=== PATIENT | male | born 1950 ===

== ENCOUNTER 2021-09-12 06:35 | Inpatient (IN) | payer MEDICARE ==
[~2021-09-12] VITALS: Ht 182.9 cm; Wt 100.0 kg
[2021-09-12 07:02] LABS: BASOPHILS ABSOLUTE AUTO 0.04 K/mm3 (0.00-0.23); BASOPHILS PERCENT AUTO 0 % (0-2); EOSINOPHILS ABSOLUTE AUTO 0.02 K/mm3 (0.00-0.68); EOSINOPHILS PERCENT AUTO 0 % (0-6); Hematocrit 40.6 % (37.0-53.0); Hemoglobin 13.3 g/dL (13.5-17.5); IMMATURE GRAN ABSOLUTE AUTO 0.09 K/mm3 (0.00-0.10); IMMATURE GRAN PERCENT AUTO 1 % (0-1); LYMPHOCYTES PERCENT AUTO 17 % (21-46); MONOCYTES ABSOLUTE AUTO 1.31 K/mm3 (0.16-1.47); MONOCYTES PERCENT AUTO 7 % (4-13); Mean Corpuscular HGB 25.9 pg (26.0-34.0); Mean Corpuscular HGB Conc 32.8 g/dL (31.5-36.5); Mean Corpuscular Volume 79 fL (80-100); Mean Platelet Volume 8.8 fL (9.1-12.4); NEUTROPHILS PERCENT AUTO 76 % (41-73); Platelet Count 418 K/mm3 (150-400); RDW Coefficient Variation 13.2 % (11.7-14.2); RDW Standard Deviation 37.9 fL (35.1-46.3); Red Blood Cell Count 5.14 M/mm3 (4.30-5.90); White Blood Cell Count 19.06 K/mm3 (4.00-11.30)
[2021-09-12 07:23] LABS: Alanine Aminotransfer (ALT/SGP 12 U/L (12-78); Albumin, Blood 4.1 g/dL (3.4-5.0); Alk Phos 67 U/L (50-136); Anion Gap 25 mmol/L (6-16); Aspartate Aminotrans (AST/SGOT 14 U/L (12-37); Bilirubin, Total 0.3 mg/dL (0.1-1.0); Blood Urea Nitrogen 43 mg/dL (8-24); Bun/Creatinine Ratio 15.7 (12.0-20.0); CO2, Blood 29 mmol/L (21-32); Calcium, Blood 9.7 mg/dL (8.5-10.1); Chloride, Blood 72 mmol/L (98-108); Creatinine, Blood 2.74 mg/dL (0.60-1.20); Ethanol (Alcohol), Blood, Med <3 mg/dL; Globulin, Blood 4.1 g/dL (2.2-4.0); Glomerular Filtration Rate 24 (60-); Glucose, Blood 121 mg/dL (70-99); Potassium, Blood 2.8 mmol/L (3.5-5.5); Sodium, Blood 126 mmol/L (136-145); Total Protein, Blood 8.2 g/dL (6.4-8.2)
[2021-09-12] MEDS ORDERED: POTA8 PO (08:27)
[2021-09-12] MEDS ORDERED: VALSARTAN80 MG PO (08:27)
[2021-09-12] MEDS ORDERED: LEVEMIR FL100 UNIT/2 SC (08:27)
[2021-09-12] MEDS ORDERED: ATOR40TA PO (08:28)
[2021-09-12] MEDS ORDERED: GABA100 PO (08:28)
[2021-09-12] MEDS ORDERED: METFORMIN HCL500 M2 PO (08:28)
[2021-09-12 12:17] LABS: Source, Urine Clean Catch
[2021-09-12 12:24] LABS: Blood, Urine Neg (Neg); Color, Urine Yellow (P-Yellow); Glucose Qualitative, Urine Neg (Neg); Ketones, Urine Neg (Neg); Leukocyte Esterase, Urine Neg (Neg); Nitrite, Urine Neg (Neg); Protein, Urine 1+ (Neg); Urobilinogen, Urine NORM (Normal)
[2021-09-12 12:34] LABS: Appearance, Urine Hazy (Clear); Bacteria Not Seen /hpf; Bilirubin, Urine 1+ (Neg); Red Blood Cells, Urine Not Seen /hpf (0-2); Squamous Epithelial Cells Not Seen /hpf (Few); White Blood Cells, Urine Not Seen /hpf (0-5)
--- NOTE | 2021-09-12 18:39 | NUR ---
SHIFT SUMMARY: PT A/O X4, IND IN ROOM. PLEASANT AND COOPERATIVE WITH CARES. PT CIWA THIS EVENING WAS 3 DUE TO HEAD ACHE A AND SLIGHT AGITATION. NO VISIBLE OR FELT TREMORS IN HANDS AT THIS TIME. TYLENOL GIVEN FOR HIS HEAD ACHE AND WAS EFFECTIVE IN TREATING PAIN. PT HAS HAD NO EPISODES OF NAUSEA OR VOMITING THROUGHOUT SHIFT. PT URINE HAS GONE FROM CLOUDY TO LIGHT CLEAR YELLOW. IV FLUIDS CONTINUE AT 150ML/HR. NO OTHER CONCERNS AT THIS TIME.
--- NOTE | 2021-09-13 01:23 | NUR ---
PHYSICIAN COMMUNICATION CONTACTED DR JAMES TO NOTIFY HIM THAT THE PATIENT REPORTED HAVING INDEGESTION. DR JAMES ORERED TUMS 500 MG EVERY 4 HOURS NEEDED.
[2021-09-13 05:12] LABS: Hematocrit 35.6 % (37.0-53.0); Hemoglobin 11.8 g/dL (13.5-17.5); Mean Corpuscular HGB Conc 33.1 g/dL (31.5-36.5); Mean Corpuscular Volume 78 fL (80-100); Mean Platelet Volume 9.1 fL (9.1-12.4); Platelet Count 363 K/mm3 (150-400); RDW Coefficient Variation 13.4 % (11.7-14.2); RDW Standard Deviation 38.6 fL (35.1-46.3); Red Blood Cell Count 4.54 M/mm3 (4.30-5.90); White Blood Cell Count 10.96 K/mm3 (4.00-11.30)
[2021-09-13 05:56] LABS: Bun/Creatinine Ratio 22.2 (12.0-20.0); Calcium, Blood 9.1 mg/dL (8.5-10.1); Creatinine, Blood 1.53 mg/dL (0.60-1.20); Potassium, Blood 3.6 mmol/L (3.5-5.5)
--- NOTE | 2021-09-13 06:31 | NUR ---
SHIFT SUMMARY PATIENT ALERT AND ORIENTED. MEDICATED PER EMAR FOR NAUSEA. NO COMPLAINTS OF PAIN OR SHORTNESS OF BREATH. NO ACUTE ISSUES NOTED OVERNIGHT. CALL LIGHT WITHIN REACH. REPORT GIVEN TO ONCOMING RN.
[2021-09-13] MEDS ORDERED: METO5A PO (15:16)
[2021-09-13] MEDS ORDERED: MULVITA PO (15:17)
[2021-09-13] MEDS ORDERED: B-1100 M1 PO (15:18)
[2021-09-13] MEDS ORDERED: GABA300 PO (15:27)
--- NOTE | 2021-09-13 15:55 | NUR ---
DISCHARGE SUMMARY PT DISCHARGED TO HOME. PT LEFT ROOM AT 1353 VIA WHEELCHAIR WITH REGIONAL SAFETY MANAGER ESCORT. ALL DISCHARGE INFORMATION DISCUSSED. PT AGREES TO FOLLOW UP WITH PCP ON 09/17/21 SCHEDULED. PT EDUCATED ON ALL MEDICATIONS AND AGREES TO TAKE PRESCRIBED. IV DC'D AND BELONGINGS RETURNED.
== END 2021-09-13 16:34 | disposition home health service (06) | DRG 683 ==
LOC: ER 06:35 → MEDS 08:36
PROVIDERS: Emergency Medicine; Nurse Practitioner Acute Care; ADMIT Internal Medicine
PROC: HZ2ZZZZ Detoxification Services for Substance Abuse Treatment (ICD-10-PCS; principal; 2021-09-12)
DX: N17.9 Acute kidney failure, unspecified (principal); E87.1 Hypo-osmolality and hyponatremia; F10.239 Alcohol dependence with withdrawal, unspecified; E87.2 Acidosis; E86.0 Dehydration; D72.829 Elevated white blood cell count, unspecified; R25.1 Tremor, unspecified; E87.6 Hypokalemia; E11.9 Type 2 diabetes mellitus without complications; E78.5 Hyperlipidemia, unspecified; Z79.4 Long term (current) use of insulin; Z79.899 Other long term (current) drug therapy
CPT/HCPCS: 36415; 71045; 80048; 80053; 81001; 82010; 82947; 83690; 83735; 85025; 85027; 93005; 93010; 96365; 96375; 99285-25; A9270; C9113; G0480; J1815; J2060; J2405; J3480; J7030; J7050

== ENCOUNTER 2024-08-16 09:41 | Inpatient (IN) | payer OTHER ==
[~2024-08-16] VITALS: Ht 182.9 cm; Wt 92.0 kg
[~2024-08-16 09:41] MED LIST: ATOR40TA PO; B-1100 M1 PO; GABA100 PO; GABA300 PO; LEVEMIR FL100 UNIT/2 SC; METFORMIN HCL500 M2 PO; METO5A PO; MULVITA PO; POTA8 PO; VALSARTAN80 MG PO
[2024-08-16 11:02] LABS: BASOPHILS ABSOLUTE AUTO 0.04 K/mm3 (0.00-0.23); BASOPHILS PERCENT AUTO 0 % (0-2); EOSINOPHILS ABSOLUTE AUTO 0.02 K/mm3 (0.00-0.68); EOSINOPHILS PERCENT AUTO 0 % (0-6); Hematocrit 31.4 % (37.0-53.0); Hemoglobin 10.2 g/dL (13.5-17.5); IMMATURE GRAN ABSOLUTE AUTO 0.06 K/mm3 (0.00-0.10); IMMATURE GRAN PERCENT AUTO 1 % (0-1); LYMPHOCYTES ABSOLUTE AUTO 2.10 K/mm3 (0.84-5.20); LYMPHOCYTES PERCENT AUTO 17 % (21-46); MONOCYTES ABSOLUTE AUTO 1.33 K/mm3 (0.16-1.47); MONOCYTES PERCENT AUTO 11 % (4-13); Mean Corpuscular HGB Conc 32.5 g/dL (31.5-36.5); Mean Corpuscular Volume 82 fL (80-100); NEUTROPHILS ABSOLUTE AUTO 8.85 K/mm3 (1.96-9.15); NEUTROPHILS PERCENT AUTO 71 % (41-73); NRBC ABSOLUTE 0.00 K/mm3 (0.00-0.02); NRBC Auto 0.0 /100 WBC (0.0-0.2); Platelet Count 299 K/mm3 (150-400); RDW Coefficient Variation 14.6 % (11.7-14.2); RDW Standard Deviation 43.1 fL (35.1-46.3)
[2024-08-16 11:28] LABS: Alanine Aminotransfer (ALT/SGP 28.0 U/L (12-78); Albumin, Blood 3.1 g/dL (3.4-5.0); Albumin/Globulin Ratio 0.8 (0.8-1.8); Anion Gap 9.0 mmol/L (3-11); Aspartate Aminotrans (AST/SGOT 15.0 U/L (12-37); Bilirubin, Total 0.2 mg/dL (0.1-1.0); Blood Urea Nitrogen 29.0 mg/dL (8-24); C-REACTIVE PROTEIN, EXT RANGE 3.1 mg/dL (0.000-0.300); CO2, Blood 28.0 mmol/L (21-32); Calcium, Blood 8.3 mg/dL (8.5-10.1); Chloride, Blood 96.0 mmol/L (98-108); Creatinine, Blood 1.52 mg/dL (0.60-1.20); Globulin, Blood 4.1 g/dL (2.2-4.0); Glucose, Blood 359.0 mg/dL (70-99); Potassium, Blood 4.5 mmol/L (3.5-5.5); Sodium, Blood 128.0 mmol/L (136-145); Total Protein, Blood 7.2 g/dL (6.4-8.2)
[2024-08-16] MEDS ORDERED: NS 1,000 ML IV SCH (12:05)
[2024-08-16] MEDS ORDERED: Vancomycin (Pharmacy Consult) IV PRN (12:10)
[2024-08-16] MEDS ORDERED: CefTRIAXone Sodium 1,000 MG in NS 100 ML IV ONE (12:10)
[2024-08-16] MEDS ORDERED: Vancomycin HCL 2,500 MG in NS 500 ML IV ONE (12:15)
[2024-08-16] MEDS ORDERED: Ondansetron HCl 2 MG / ML 2ML Vial IV PRN (14:15)
[2024-08-16] MEDS ORDERED: Prochlorperazine Edisylate 10 mg Vial IV PRN (14:20)
[2024-08-16] MEDS ORDERED: Vancomycin (Pharmacy Consult) IV SCH (14:20)
[2024-08-16] MEDS ORDERED: HYDROmorphone HCl/Pf 1MG SYR IV PRN (14:20)
[2024-08-16] MEDS ORDERED: Polyethylene Glycol 3350 17 gm PO PRN (14:20)
[2024-08-16 15:59] VITALS: BP 151/75
[2024-08-16] MEDS ORDERED: VITAMIN B12500 MCG PO (16:20)
[2024-08-16] MEDS ORDERED: Aspir 8181 MG PO (16:20)
[2024-08-16] MEDS ORDERED: BASAGLAR K100 UNIT/6 SC (16:21)
[2024-08-16] MEDS ORDERED: Insulin Human Lispro 100 Units/ML 3ML Syringe SC SCH (16:30)
--- NOTE | 2024-08-16 18:13 | NUR ---
DAY SUMMARY NEW ER ADMIT THIS SHIFT (1600), A&OX4, INDEP IN ROOM, PLEASANT & COOPERATIVE W/CARES, DR BARRON ROUNDED ON PT @ 1800, PLAN TO BE NPO AT MIDNIGHT FOR GREAT R TOE AMP TOMORROW, MEDICATED 1X FOR PAIN, VSS, WILL CONT TO MONITOR UNTIL REPORT GIVEN TO ONCOMING NURSE.
[2024-08-16 19:57] VITALS: BP 139/75
[2024-08-16] MEDS ORDERED: Docusate Sodium/Senna 1 Tab PO SCH (21:00)
[2024-08-16] MEDS ORDERED: Lactobacil 2-S.Thermo-Bifido 1 1 Cap PO SCH (21:00)
[2024-08-16] MEDS ORDERED: NS 250 ML IV PRN (22:00)
[2024-08-17] VITALS (13 sets, daily range): BP systolic 123–153; BP diastolic 65–78
[2024-08-17] MEDS ORDERED: CeFAZolin Sodium 1,000 MG in NS 50 ML IV SCH
--- NOTE | 2024-08-17 04:04 | NUR ---
SHIFT SUMMARY ADMITTED FOR RIGHT GREAT TOE ULCER. FULL CODE. SURGICAL INTERVENTION PLANNED FOR TODAY. PT HAS BEEN NPO SINCE MIDNIGHT. PODIATRY CONSULT IS DR. JALLOH. HE IS A&O X4, ON RA, INDEPENDENT IN ROOM. IV ANTIB RX ARE SCHEDULED. PAIN MEDICATION GIVEN THIS SHIFT.
[2024-08-17 05:20] LABS: Hematocrit 35.4 % (37.0-53.0); Hemoglobin 11.2 g/dL (13.5-17.5); Mean Corpuscular HGB Conc 31.6 g/dL (31.5-36.5); Mean Corpuscular Volume 82 fL (80-100); NRBC ABSOLUTE 0.00 K/mm3 (0.00-0.02); NRBC Auto 0.0 /100 WBC (0.0-0.2); Platelet Count 349 K/mm3 (150-400); RDW Coefficient Variation 14.6 % (11.7-14.2); RDW Standard Deviation 43.6 fL (35.1-46.3)
[2024-08-17 05:45] LABS: Albumin, Blood 3.3 g/dL (3.4-5.0); Anion Gap 7 mmol/L (3-11); Blood Urea Nitrogen 25 mg/dL (8-24); CO2, Blood 28 mmol/L (21-32); Calcium, Blood 8.5 mg/dL (8.5-10.1); Chloride, Blood 102 mmol/L (98-108); Creatinine, Blood 1.22 mg/dL (0.60-1.20); Glucose, Blood 195 mg/dL (70-99); Phosphorus, Blood 3.2 mg/dL (2.5-4.9); Potassium, Blood 4.3 mmol/L (3.5-5.5); Sodium, Blood 133 mmol/L (136-145)
[2024-08-17] MEDS ORDERED: Ampicillin Sod/Sulbactam Sod 3 GM in NS 100 ML IV SCH (12:00)
--- NOTE | 2024-08-17 15:59 | NUR ---
"Spiritual Care Visit | Pt. request Pt. is sitting by a window when he welcomes my visit. Pt. is pleasant but unsettled about his pending surgery. Facilitated a lengthy life review. Listened with empathy and a calming presence. Considered matters of yee and belief. Pt. displayed evidence of increased confidence and peace as we talked together. Prayed for the Pt. Pt. verbalized gratitude for the spiritual care visit and welcomed this category analyst to visit."
[2024-08-17] MEDS ORDERED: Bupivacaine 0.5% HCl 5 MG/ML 30MLVIAL ONE (16:14)
--- NOTE | 2024-08-17 16:35 | NUR ---
INTO [facility] VIA WHEELCHAIR.PT ABLE TO TRANSFER TO [facility] WITH STANDBY ASSIST. PT REPORTS 6/10 RIGHT GREAT TOE PAIN. HISTORY AND ALLERGIES REVIEWED. LUNGS WITH SCATTERED EXPIRATORY WZ T/O. SATS>90% ON RA. PT HAS OCCASIONAL MOIST COUGH. PT STATES THAT HIS COUGH IS PRODUCTIVE OF MODERATE AMOUNT OF BROWN/BLACK SECRETIONS HE HAS "SMOKED WEED SINCE I WAS 16." DUONEB GIVEN. NPO STATUS CONFIRMED.
[2024-08-17] MEDS ORDERED: Ipratropium/Albuterol SulF 2.5-0.5MG/3 ML Amp INH ONE (16:40)
[2024-08-17] MEDS ORDERED: Ipratropium/Albuterol SulF 2.5-0.5MG/3 ML Amp ONE (16:41)
--- NOTE | 2024-08-17 16:52 | NUR ---
PT OUT OF ROOM VIA GURNEY TO SURGERY FOR RIGHT GREAT TOE APUTATION.
[2024-08-17] MEDS ORDERED: FentaNYL Citrate 50 MCG/ML 2 ML Injection ONE (17:03)
[2024-08-17] MEDS ORDERED: Dexamethasone Sod Phos 10 MG/ML 1ML VIAL ONE (17:09)
[2024-08-17] MEDS ORDERED: Ondansetron HCl 2 MG / ML 2ML Vial ONE (17:09)
[2024-08-17] MEDS ORDERED: Phenylephrine HCl 100 MCG/ML-NS 10MLSYR (1MG/10ML) ONE (17:10)
[2024-08-17] MEDS ORDERED: Metoclopramide HCl 5MG / ML 2ML Vial IV PRN (17:15)
[2024-08-17] MEDS ORDERED: Albuterol 2.5 MG/3 ML VIAL INH PRN (17:20)
[2024-08-17] MEDS ORDERED: HYDROmorphone HCl/Pf 1MG SYR IV PRN (17:20)
[2024-08-17] MEDS ORDERED: Morphine Sulfate 4 MG/1 ML Injection IV PRN (17:20)
[2024-08-17] MEDS ORDERED: Ondansetron HCl 2 MG / ML 2ML Vial IV PRN (17:20)
[2024-08-17] MEDS ORDERED: FentaNYL Citrate 50 MCG/ML 2 ML Injection IV PRN ×2 (17:20)
--- NOTE | 2024-08-17 18:16 | NUR ---
RESUMED CARE OF PT FROM PACU. PT TRANSPORTED VIA GURNEY TO ROOM AND TRANSFERED TO BED WITHOUT DIFFICULTY. PT DRESSING IS C/D/I UPON ARRIVAL. PT A/O X4; DENIES N/V; PAIN; SOB; OR ANY OTHER COMPLAINTS. PT SITTING UP IN BED EATING DINNER. MEDICATION ADMINISTERED PER EMAR. BED IN LOWEST POSITION AND CALL LIGHT WITHIN REACH.
[2024-08-18 02:38] VITALS: BP 126/72
--- NOTE | 2024-08-18 04:12 | NUR ---
SHIFT SUMMARY ADMITTED FOR RIGHT GREAT TOE ULCER. FULL CODE. POST-OP FROM RIGHT GREAT TOE AMPUTATION 08/17. IV ANTIB ARE SCHEDULED. WHEN STABLE FOR DC, HE PLANS TO GO HOME W/OUTPT WOUND CLINIC. DR. JALLOH IS PODIATRY CONSULT. HE IS ON RA, A&O X4, ADA DIET. ACHS CBG'S - MEDIUM SS. I GAVE PO PAIN RX ONLY ONCE SO FAR THIS SHIFT.
[2024-08-18 06:18] LABS: Hematocrit 33.0 % (37.0-53.0); Hemoglobin 10.5 g/dL (13.5-17.5); Mean Corpuscular HGB Conc 31.8 g/dL (31.5-36.5); Mean Corpuscular Volume 81 fL (80-100); NRBC ABSOLUTE 0.00 K/mm3 (0.00-0.02); NRBC Auto 0.0 /100 WBC (0.0-0.2); Platelet Count 383 K/mm3 (150-400); RDW Coefficient Variation 14.4 % (11.7-14.2); RDW Standard Deviation 42.7 fL (35.1-46.3)
[2024-08-18 07:03] LABS: Albumin, Blood 2.9 g/dL (3.4-5.0); Anion Gap 10 mmol/L (3-11); Blood Urea Nitrogen 28 mg/dL (8-24); CO2, Blood 24 mmol/L (21-32); Calcium, Blood 8.6 mg/dL (8.5-10.1); Chloride, Blood 103 mmol/L (98-108); Creatinine, Blood 1.19 mg/dL (0.60-1.20); Glucose, Blood 268 mg/dL (70-99); Magnesium, Blood 2.0 mg/dL (1.6-2.4); Phosphorus, Blood 3.6 mg/dL (2.5-4.9); Potassium, Blood 4.6 mmol/L (3.5-5.5); Sodium, Blood 132 mmol/L (136-145)
[2024-08-18 08:19] VITALS: BP 155/72
[2024-08-18] MEDS ORDERED: Insulin Glargine-Yfgn 100 Unit/mL 3 ML SYR SC PRN (12:00)
[2024-08-18 12:37] VITALS: BP 145/68
--- NOTE | 2024-08-18 12:52 | NUR ---
Pt. is awake and in bed when he welcomes my visit. Sister is at bedside. Facilitae an update since his surgical procedure from the previous day. Pt. verbalizes no pain and is grateful for the speed and care of the procedure. Facilitated lengthy life review with both Pt. and his sister. Pt. displays evidence of awareness, engagement, and trust. Prayed with the Pt. Pt. verbalized gratitude for the spiritual care visits.
[2024-08-18 15:48] VITALS: BP 131/68
[2024-08-18] MEDS ORDERED: Cefepime HCl 2,000 MG in NS 100 ML IV SCH (17:00)
--- NOTE | 2024-08-18 18:05 | NUR ---
SHIFT SUMMARY PT A&OX4, VSS, AMB IND, TOLERATING PO, VOIDING, AND DENIED PAIN. ROUNDED ON PT AND CHANGED DRESSING. IV ABX GIVEN PER ORDER. NO ACUTE CHANGES. CALL LIGHT WITHIN REACH AND PT ABLE TO MAKE NEEDS KNOWN.
[2024-08-18 20:05] VITALS: BP 141/74
[2024-08-18] MEDS ORDERED: Insulin Glargine-Yfgn 100 Unit/mL 3 ML SYR SC SCH (21:00)
--- NOTE | 2024-08-19 03:55 | NUR ---
SHIFT SUMMARY ADMITTED FOR RIGHT GREAT TOE ULCER. FULL CODE. IV ANTIB RX ARE SCHEDULED. POST OP DAY 2 RIGHT GREAT TOE AMPUTATION. PATIENT DENIES PAIN. AMBULATES IN THE ROOM UNASSISTED AFTER WORKING WITH PHYSICAL THERAPY. HE WILL FOLLOW UP OUTPT WITH THE WOUND CLINIC FOLLOWING DC. DR. JALLOH IS PODIATRY CONSULT. PT IS A&O X4, INDEPENDENT, ON RA, ADA DIET. ACHS CBG'S - MEDIUM SS. NO NEW CONCERNS THIS SHIFT.
[2024-08-19 05:25] VITALS: BP 146/80
[2024-08-19 05:47] LABS: Anion Gap 7.0 mmol/L (3-11); Blood Urea Nitrogen 27.0 mg/dL (8-24); CO2, Blood 30.0 mmol/L (21-32); Calcium, Blood 8.6 mg/dL (8.5-10.1); Chloride, Blood 103.0 mmol/L (98-108); Creatinine, Blood 1.2 mg/dL (0.60-1.20); Glucose, Blood 221.0 mg/dL (70-99); Potassium, Blood 4.5 mmol/L (3.5-5.5); Sodium, Blood 135.0 mmol/L (136-145)
[2024-08-19 07:59] VITALS: BP 147/84
[2024-08-19] MEDS ORDERED: AMOCLA875 PO (11:18)
[2024-08-19] MEDS ORDERED: Calcium Carbon500 MG PO (11:19)
[2024-08-19] MEDS ORDERED: DOXY100 PO (11:19)
[2024-08-19] MEDS ORDERED: VISBIOME 112.51 EACH PO (11:21)
[2024-08-19] MEDS ORDERED: INSULIN LI100 UNIT/6 (11:21)
--- NOTE | 2024-08-19 11:41 | NUR ---
DISCHARGE NOTE PT D/C HOME AT 1130. PT PROVIDED W/ VERBAL AND WRITTEN INSTRUCTIONS AND REPORTED UNDERSTANDING. PT A&OX4, VSS, AMB IND, TOLERATING PO, VOIDING, AND DENIED PAIN. DRESING REMAINED C/D/I. THIS RN CALLED AND PT OK FOR D/C. BELONGINGS WERE RETURNED AND PT ESCOURTED OUT TO HIS CAR VIA W/C BY MARY WALTER.
== END 2024-08-19 11:40 | disposition home or self-care (01) | DRG 854 ==
LOC: ER 09:41 → MEDS 14:13
PROVIDERS: Internal Medicine; Student in an Organized Health Care Education/Training Program; ADMIT Internal Medicine
PROC: 3E03329 Introduction of Other Anti-infective into Peripheral Vein, Percutaneous Approach (ICD-10-PCS; 2024-08-16)
PROC: 0Y6P0Z0 Detachment at Right 1st Toe, Complete, Open Approach (ICD-10-PCS; principal; 2024-08-18)
DX: A41.9 Sepsis, unspecified organism (principal); M86.8X7 Other osteomyelitis, ankle and foot; L97.514 Non-pressure chronic ulcer of other part of right foot with necrosis of bone; E11.621 Type 2 diabetes mellitus with foot ulcer; E11.42 Type 2 diabetes mellitus with diabetic polyneuropathy; E11.69 Type 2 diabetes mellitus with other specified complication; I10 Essential (primary) hypertension; E78.5 Hyperlipidemia, unspecified; Z79.4 Long term (current) use of insulin; Z79.84 Long term (current) use of oral hypoglycemic drugs; Z79.899 Other long term (current) drug therapy
CPT/HCPCS: 36415; 73630; 80048; 80053; 80069; 82947; 83036; 83735; 85025; 85027; 85651; 86140; 87071; 87075; 87205; 94760; 96365; 96368; 97116; 97162; 97530; 99285-25; A9270; J0295; J0690; J0692; J0696; J1100; J1815; J2371; J2405; J2704; J3010; J3373; J7030; J7040; J7050; J7120